=== PATIENT | male | born 1980 | race Caucasian/White ===

== ENCOUNTER 2021-05-20 10:10 | Emergency (ER) | payer OTHER ==
[~2021-05-20] VITALS: Ht 177.8 cm; Wt 103.4 kg
[2021-05-20 10:11] VITALS: BP 117/79
--- NOTE | 2021-05-20 10:20 | NUR ---
PT AMBULATED TO BED
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
--- NOTE | 2021-05-20 10:25 | NUR ---
DR VIRK EXAMINING PT
[2021-05-20] MEDS ORDERED: ACETAMINOPHEN EXTRA STRENGTH 500 MG TAB PO ONE (10:30)
[2021-05-20] MEDS ORDERED: KETOROLAC 60 MG/2 ML VIAL IM ONE (10:30)
--- NOTE | 2021-05-20 10:38 | NUR ---
pt taken to xray via mauro
--- NOTE | 2021-05-20 11:44 | NUR ---
PER ERMD MICK WRAP TREATMENT WAS DONE ON PT LEFT LEG.
[2021-05-20 11:47] VITALS: BP 117/79
--- NOTE | 2021-05-20 11:47 | NUR ---
Patient discharged with v/s stable. Written and verbal after care instructions given and explained. Patient verbalized understanding. Ambulatory with steady gait. All questions addressed prior to discharge. Advised to follow up with PMD.
== END 2021-05-20 11:47 | disposition home or self-care (01) ==
LOC: MED 10:10
DX: S70.02XA Contusion of left hip, initial encounter (principal); S93.402A Sprain of unspecified ligament of left ankle, initial encounter; V29.49XA Motorcycle driver injured in collision with other motor vehicles in traffic accident, initial encounter; Y93.89 Activity, other specified; Y92.89 Other specified places as the place of occurrence of the external cause; Y99.8 Other external cause status
CPT/HCPCS: 73502; 73610; 90471; 90715; 96372; 99284; J1885